=== PATIENT | male | born 1965 | race Caucasian/White ===

== ENCOUNTER 2022-02-27 01:21 | Emergency (ER) | payer OTHER ==
[~2022-02-27] VITALS: Ht 177.8 cm; Wt 95.4 kg
[2022-02-27] MEDS ORDERED: IBUP800T27 PO (07:29)
[2022-02-27] MEDS ORDERED: CEPH-510 PO (07:29)
[2022-02-27] MEDS ORDERED: cefTRIAXone SOD 1,000 MG VL IM ONE (07:30)
[2022-02-27] MEDS ORDERED: IBUPROFEN 800 MG TAB PO ONE (07:30)
[2022-02-27] MEDS ORDERED: TETANUS-DIPTH-ACEL PERTUSSIS 0.5ML SYR Tdap IM ONE (07:30)
[2022-02-27 07:56] VITALS: BP 172/118
== END 2022-02-27 07:54 | disposition home or self-care (01) ==
LOC: ER 01:21
DX: S62.304A Unspecified fracture of fourth metacarpal bone, right hand, initial encounter for closed fracture (principal); S62.610A Displaced fracture of proximal phalanx of right index finger, initial encounter for closed fracture; S61.431A Puncture wound without foreign body of right hand, initial encounter; Z79.1 Long term (current) use of non-steroidal anti-inflammatories (NSAID); Z79.899 Other long term (current) drug therapy; W22.8XXA Striking against or struck by other objects, initial encounter; Y93.89 Activity, other specified; Y92.89 Other specified places as the place of occurrence of the external cause; Y99.8 Other external cause status
CPT/HCPCS: 29125; 73130; 90471; 90715; 96372; 99284; J0696